=== PATIENT | female | born 1945 | race Caucasian/White ===

== ENCOUNTER → 2023-06-26 16:09 | Outpatient (REF) | payer MEDICARE, SELFPAY | LOC: HWRAD 16:09 | PROVIDERS: ATTENDING PHYSICIAN Internal Medicine | DX: R07.89 Other chest pain (principal) | CPT/HCPCS: 71110 ==

== ENCOUNTER → 2023-07-11 07:53 | Outpatient (REF) | payer MEDICARE, SELFPAY | LOC: HWWDC 07:53 | PROVIDERS: ATTENDING PHYSICIAN Internal Medicine | DX: Z12.31 Encounter for screening mammogram for malignant neoplasm of breast (principal) | CPT/HCPCS: 77063; 77067 ==

== ENCOUNTER → 2023-08-05 12:38 | Outpatient (REF) | payer MEDICARE, SELFPAY | LOC: HWRAD 12:38 | PROVIDERS: ATTENDING PHYSICIAN Nurse Practitioner | DX: J20.8 Acute bronchitis due to other specified organisms (principal) | CPT/HCPCS: 71046 ==

== ENCOUNTER 2023-08-15 07:47 | Emergency (ER) | payer MEDICARE, SELFPAY ==
[2023-08-15 07:49] VITALS: BP 183/73; BMI 26.6
--- NOTE | 2023-08-15 09:03 | ED.GENMED ---
History of Present Illness
<Sheri Castaneda PA-C - Last Filed: 08/15/23 19:17>
General
Chief Complaint: Musculo-Skeletal Complaint
Source: patient and records
Exam Limitations: none
Time Seen by Provider: 08/15/23 09:03
Nursing documentation reviewed up to this point in time: agreed with
Travel History
Have you had any contact with someone who has COVID-19?: No
Do you have any symptoms of coronavirus? Fever > 100 degrees, chills, cough, shortness of breath, sore throat, loss of taste or smell, muscle aches, or headache?: No
History of Present Illness
History of Present Illness:
78-year-old female with past medical history of hypertension, hyperlipidemia, hypothyroidism, urosepsis presenting emergency department today with low back pain for the past few days. Patient states that this first started when she was lifting
boxes. Patient states that she is currently moving out of her house and has been doing a lot of lifting to pack away boxes. Patient states that the pain will subside when lying still for period of time but any movement exacerbates the pain,
especially bending over or twisting/sitting from standing. Patient denies any fevers or chills, any dysuria, hematuria. Patient denies any abdominal pain. Patient denies any nausea or vomiting.
Past History
<Sheri Castaneda PA-C - Last Filed: 08/15/23 19:17>
Past History
ED Past Medical History: HTN
ED Past Surgical History: Gynecological
Social History
Tobacco: Former smoker
Alcohol: None
Drug: None
Personal:
Living: with family
Employment: Retired
Review of Systems
<Sheri Castaneda PA-C - Last Filed: 08/15/23 19:17>
Review of Systems
All Other Systems: ROS reviewed and negative except as documented in HPI and ROS
Phy Exam
<Sheri Castaneda PA-C - Last Filed: 08/15/23 19:17>
Physical Exam
Physical Exam:
Vitals: Patients vital signs are stable
General: Patient is well appearing and in no acute distress; non-toxic
Skin: Warm and dry, no rashes or lesions
Head: Normocephalic, atraumatic
Eyes: Sclera non-icteric. EOMs intact.
Cardiac: Regular rate
Peripheral Vascular: No lower extremity swelling
Pulm: Normal respiratory effort
Abdomen: No abdominal tenderness. No CVA tenderness.
Musculoskeletal: No midline spinal tenderness. No palpable deformities. Mild paralumbar tenderness palpation. Negative straight leg raise. Full range of motion of bilateral hip joints.
Neuro: CN II-XII intact, no focal neurologic deficits.
Psychiatric: Appropriate mood and affect.
Course
<BA Glez Last Filed: 08/15/23 19:17>
Orders/Labs/Results
Orders:
Orders
08/15/23 09:27
Lumbar Spine, 2 or 3 View [CR Lumbar Spine 2 Or 3 Views] Urgent
Comment:
Reason For Exam: low back pain
08/15/23 09:48
Acetaminophen [Tylenol] 650 mg PO NOW STA
Vital Signs
Initial and Last Documented VS:
Initial Vital Signs
Temp Pulse Resp BP Pulse Ox
98.1 F 60 16 183/73 98
08/15/23 07:49 08/15/23 07:49 08/15/23 07:49 08/15/23 07:49 08/15/23 07:49
Last Documented Vital Signs
Temp Pulse Resp BP Pulse Ox
98.1 F 60 16 160/50 93
08/15/23 07:49 08/15/23 07:49 08/15/23 07:49 08/15/23 11:00 08/15/23 11:15
<Yang Duncan DO - Last Filed: 08/15/23 09:53>
Orders/Labs/Results
Orders:
Orders
08/15/23 09:27
Lumbar Spine, 2 or 3 View [CR Lumbar Spine 2 Or 3 Views] Urgent
Comment:
Reason For Exam: low back pain
08/15/23 09:48
Acetaminophen [Tylenol] 650 mg PO NOW STA
Vital Signs
Initial and Last Documented VS:
Initial Vital Signs
Temp Pulse Resp BP Pulse Ox
98.1 F 60 16 183/73 98
08/15/23 07:49 08/15/23 07:49 08/15/23 07:49 08/15/23 07:49 08/15/23 07:49
Last Documented Vital Signs
Temp Pulse Resp BP Pulse Ox
98.1 F 60 16 160/50 93
08/15/23 07:49 08/15/23 07:49 08/15/23 07:49 08/15/23 11:00 08/15/23 11:15
<Sheri Castaneda PA-C - Last Filed: 08/15/23 19:17>
MDM/Problems Addressed
Differential Diagnosis Includes:
ddx include lumbar muscle sprain, sacroiliac sprain/strain, osteoarthritis, compression fracture
MDM/Problems Addressed:
lower back pain
Chronic conditions affecting care: HTN and Other (hyperlipidemia, osteoarthritis, hypothyroidism)
Acute Exacerbation and/or Progression of Chronic Illness:
osteoarthritis
<Sheri Castaneda PA-C - Last Filed: 08/15/23 19:17>
*Radiology
Radiology exam reviewed: preliminary read by ED provider (no acute fracture or dislocation)
*Pulse Oximetry
Patient hypoxic: no
*Critical Care Note
Total Time (30-74mins, 75-104mins- exclusive of procedures): Not Applicable
Data Reviewed
Review of Other/Old Records Reveals: Records
<Sheri Castaneda PA-C - Last Filed: 08/15/23 19:17>
Patient Management
Escalation/DeEscalation of care consider admission/obs:
78-year-old female with past medical history of hypertension, hyperlipidemia, hypothyroidism, urosepsis presenting emergency department today with low back pain for the past few days. This pain started after moving heavy boxes. On exam, patient
does have paraspinal tenderness palpation, but no bony deformities, no pain with range of motion of the hip. No urinary incontinence, fecal incontinence, paresthesias. Her x-ray demonstrates a mild anterior compression deformity of the T12
vertebrae. We did advise patient to follow-up with orthopedist or spinal pain specialist to help manage this. Patient agreement with plan. Return precautions given.
ED Attending Note
<Sheri Castaneda PA-C - Last Filed: 08/15/23 19:17>
-
Portions of this chart may have been created with voice recognition software.� Occasional wrong word or��sound alike� substitutions may have occurred due to the inherent limitations of voice recognition software.
<Yang Duncan DO - Last Filed: 08/15/23 09:53>
ED Attending Note
Patient seen and examined by attending physician: Yes
I performed the substantive portion of visit, reviewed & personally made and approve the management plan that is documented in note by myself or THAI.: Yes
ED Attending Note:
Seen with PA agree with assessment and plan
Discharge Plan
Departure
Patient Disposition: Home (Routine Discharge)
Date of Disposition: 08/15/23
Time of Disposition: 11:11
Patient with high blood pressure during this ER visit?: Yes
Condition: Good
Discharge Problem:
Back pain
Instructions: Active Range of Motion Exercises, Back and Hips, Ibuprofen, Back Pain, BLOOD PRESSURE
Prescriptions:
No Action
Simvastatin
40 mg PO DAILY
Fluticasone Propionate
2 sprays DAILY PRN (Reason: ALLERGIES)
Centrum Silver Tablet
1 PO DAILY
levothyroxine 50 MCG tablet
50 mcg PO DAILY
nebivolol [Bystolic] 10 MG tablet
10 mg PO HS
CALCIUM 500 + VIT D 400 TABLET
PO
DIOVAN
80 mg PO DAILY
Patient Comments:
160mg/25mg
oxycodone 5 MG tablet
5 mg PO Q4HPRN PRN (Reason: pain) Qty: 20 0RF
polyethylene glycol 3350 17 GRAMS powder in packet
17 grams PO DAILY Qty: 10 0RF
Rx Instructions:
use if no BM >24h, OTC, no Rx given/needed
tramadol [Ultram] 50 MG tablet
50 mg PO Q6HPRN PRN (Reason: moderate pain) Qty: 10 0RF
Rx Instructions:
can increase to 2 tabs for severe pain
acetaminophen [Tylenol Extra Strength] 500 MG tablet
1,000 mg PO Q6HPRN PRN (Reason: mild pain) Qty: 1 0RF
Rx Instructions:
take around the clock for 2 days aftrer surgery, then use as needed
OTC, no prescription given
Referrals:
Teodoro Fuentes MD [Active] - Call in 1-3 days for appt
Juliana Meneses MD [Family Provider] -
Activity Restrictions/Additional Instructions:
Please return to the emergency department should you experience any fevers or chills, and acute worsening of your pain, pain with urination, blood in your urine, nausea or vomiting, abdominal pain, chest pain, shortness of breath, or other
concerning signs or symptoms.
As discussed, please continue conservative measures for pain. I recommend using Tylenol as you have been with addition of ice and heat alternating, with lidocaine patches as needed. If your pain does not improve with these measures, I recommend
Motrin.
I have attached the number to use the Dr. Fuentes, spinal pain specialist. Please call for a follow-up appointment.
Please follow up with your PCP.
Interventions
Interventions:
*Risk Screen - Suicide Last Done: 08/15/23 07:49
*General Assessment Last Done: 08/15/23 09:46
*Neglect/Abuse Screening Last Done: 08/15/23 07:49
ED- Fall Risk Assessment Last Done: 08/15/23 11:34
*ED COVID-19 Vaccine History Last Done: 08/15/23 07:49
*Nursing Disposition Last Done: 08/15/23 11:34
ED-Musculoskeletal Assessment Last Done: 08/15/23 09:46
Discharge Date and Time
Discharge Date/Time: 08/15/23 11:34
Print Language: AMHARIC
[2023-08-15 09:54] VITALS: BP 169/44
[2023-08-15] MEDS: TYLENOL 650 MG PO (09:57)
[2023-08-15 10:00] VITALS: BP 178/49
[2023-08-15 11:00] VITALS: BP 160/50
== END 2023-08-15 11:34 | disposition home or self-care (01) ==
LOC: EMR 07:47
PROVIDERS: EMERGENCY PHYSICIAN Emergency Medicine; FAMILY PHYSICIAN Internal Medicine
DX: M54.50 Low back pain, unspecified (principal); I10 Essential (primary) hypertension; E78.5 Hyperlipidemia, unspecified; E03.9 Hypothyroidism, unspecified; Z87.891 Personal history of nicotine dependence
CPT/HCPCS: 99283; 72100

== ENCOUNTER → 2024-01-27 09:03 | Outpatient (REF) | payer MEDICARE, SELFPAY | LOC: RAD 09:03 | PROVIDERS: ATTENDING PHYSICIAN Surgery Vascular Surgery; FAMILY PHYSICIAN Internal Medicine | DX: I71.40 Abdominal aortic aneurysm, without rupture, unspecified (principal) | CPT/HCPCS: 76770 ==

== ENCOUNTER → 2024-05-11 11:48 | Outpatient (REF) | payer MEDICARE, SELFPAY | LOC: HWRAD 11:48 | PROVIDERS: ATTENDING PHYSICIAN Hospitalist | DX: J06.9 Acute upper respiratory infection, unspecified (principal) | CPT/HCPCS: 71046 ==

== ENCOUNTER 2024-05-30 23:50 | Inpatient (IN) | payer MEDICARE, SELFPAY ==
[2024-05-30 21:27] VITALS: BMI 24.1
[2024-05-30 21:33] VITALS: BP 119/72
--- NOTE | 2024-05-30 22:08 | ED.GENMED ---
History of Present Illness
General
Chief Complaint: Abnormal Lab Value
Source: patient and physician
Exam Limitations: none
Time Seen by Provider: 05/30/24 21:54
History of Present Illness
History of Present Illness:
79-year-old female sent in for abnormal labs. Recently discharged with pneumonia discharged on Lasix felt like she was off a little bit. BMP today showed a sodium of 129 and potassium 5.9. No chest pain shortness of breath or other complaints
Past History
Past History
ED Past Medical History: HTN and Hypercholesterolemia
ED Past Surgical History: , Gynecological, Orthopedic and Other (Thoracotomy)
Social History
Tobacco: Former smoker
Alcohol: None
Drug: None
Personal:
Living: with family
Employment: Retired
Phy Exam
Physical Exam
Physical Exam:
GENERAL: Alert and oriented in no apparent distress
EYE: Orbits normal.
NECK: Supple, no thyroid palpable.
ENT: Pharynx without erythema
CARDIAC: Regular rate and rhythm without any obvious murmurs.
LUNGS: Clear breath sounds,normal
ABDOMEN: Soft, without focal tenderness or distention
NEUROLOGICAL: Alert and oriented , grossly non-focal
SKIN: Warm and dry, no rash or lesion, no discoloration, skin intact.
MUSCULOSKELETAL: No edema,no deformity.Good color
PSYCH: Normal and appropriate interaction.
Course
Orders/Labs/Results
Orders:
Orders
05/30/24 21:54
Electrocardiogram (*1) Stat
Reason for Study: Other
Other Reason for Exam: chest pain
Cardiac Monitoring- Treatment ONCE
EKG- Treatment ONCE
IV Insert/Care/Rem.- Treatment PRN
05/30/24 22:05
Basic Metabolic Panel Urgent
Complete Blood Count/With Diff Urgent
05/30/24 23:19
CT Head W/o Iv Contrast Urgent
Comment:
Reason For Exam: Hyponatremia, Change in Mental Status
Urine Osmolality Random [Osmolality, Random Urine] Urgent
Date Specimen was Collected: 05/30/24
Time Specimen was Collected: 23:23
Urine Sodium Urgent
Date Specimen was Collected: 05/30/24
Time Specimen was Collected: 23:23
CXR2 [CR Chest - 2 Views ] Urgent
Comment:
Reason For Exam: Hyponatremia, Recent pneumonia
Abnormal Lab Results
05/30/24
22:05
RBC 3.20 L 10^6/uL
(4.20-5.40)
Hgb 9.8 L g/dL
(12.0-16.0)
Hct 28.8 L %
(37.0-47.0)
Absolute Neuts (auto) 6.6 H 10^3/uL
(1.4-6.5)
Absolute Lymphs (auto) 1.1 L 10^3/uL
(1.2-3.4)
Absolute Monos (auto) 0.9 H 10^3/uL
(0.1-0.6)
Lymphocytes % 12.7 L %
(20.5-51.1)
Monocytes % 9.7 H %
(1.7-9.3)
Sodium 126 L mmol/L
(135-145)
Chloride 93 L mmol/L
(98-107)
BUN 27 H mg/dl
(7-17)
05/30/24 22:05
05/30/24 22:05
Vital Signs
Initial and Last Documented VS:
Initial Vital Signs
Temp Pulse Resp BP Pulse Ox
98.7 F 67 20 119/72 94
05/30/24 21:33 05/30/24 21:33 05/30/24 21:33 05/30/24 21:33 05/30/24 21:33
Last Documented Vital Signs
Temp Pulse Resp BP Pulse Ox
98.7 F 60 18 119/72 98
05/30/24 21:33 05/30/24 22:45 05/30/24 22:45 05/30/24 21:33 05/30/24 22:45
MDM/Problems Addressed
MDM/Problems Addressed:
Mild hyperkalemia and mild hyponatremia. Clinically stable and nontoxic. Will repeat labs and manage depending on repeat lab results
*Pulse Oximetry
Patient hypoxic: no
*EKG
Interpreted by ED Provider?: Yes
Interpretation: abnormal
Comparison EKG: changes noted
Heart Rate: 57
Rate: bradycardiac
Rhythm: sinus
[place]: normal axis
Interval: normal interval
QRS Pattern: normal QRS
Ischemia: no ischemia
*Critical Care Note
Total Time (30-74mins, 75-104mins- exclusive of procedures): Not Applicable
Data Reviewed
Review of Other/Old Records Reveals: Labs, Records and Testing
Update Note
Update Note:
Patient's potassium is reasonable. Unfortunately her sodium is dropped from 129-126 in a half a day. Given the drop in sodium, with some cognitive issues at home earlier patient warrants admission. Likely secondary to diuretic. She does drink a
fair amount of water.
ED Attending Note
-
Portions of this chart may have been created with voice recognition software.� Occasional wrong word or��sound alike� substitutions may have occurred due to the inherent limitations of voice recognition software.
Discharge Plan
Departure
Patient Disposition: Admit
Date of Disposition: 05/30/24
Time of Disposition: 22:48
Presentation/result/management discussed w/ accepting MD/DO: Hospitalist
Discharge Problem:
Hyponatremia, Hyponatremia transient cognitive issues
Prescriptions:
No Action
levothyroxine 50 MCG tablet
50 mcg PO DAILY
citalopram 10 mg Tablet
10 mg PO Q OTHER DAY
lisinopril 20 mg Tablet
20 mg PO BID
labetalol 100 mg Tablet
100 mg PO BID
Referrals:
Juliana Meneses MD [Family Provider] -
Interventions
Interventions:
*Risk Screen - Suicide Last Done: 05/30/24 21:33
*General Assessment Last Done: 05/30/24 21:33
*Neglect/Abuse Screening Last Done: 05/30/24 21:33
ED- Fall Risk Assessment Last Done: 05/30/24 21:33
*ED COVID-19 Vaccine History Last Done: 05/30/24 21:33
Discharge Date and Time
Print Language: ISRAELI
[2024-05-30 22:14] LABS: % Basophils 0.2 % (0-2); % Eosinophils 2.7 % (0-6); % Immature Granulocytes 0.4 % (0-0.5); % Lymphocytes 12.7 % (20.5-51.1); % Monocytes 9.7 % (1.7-9.3); % Neutrophils 74.3 % (42.2-75.2); Absolute Eosinophils 0.2 10^3/uL (0-0.7); Absolute Lymphocytes 1.1 10^3/uL (1.2-3.4); Absolute Monocytes 0.9 10^3/uL (0.1-0.6); Absolute Neutrophils 6.6 10^3/uL (1.4-6.5); Hematocrit 28.8 % (37.0-47.0); Hemoglobin 9.8 g/dL (12.0-16.0); Mean Corpuscular Hgb 30.6 pg (27.0-31.0); Mean Platelet Volume 9.3 fL (7.4-10.4); Nucleated Red Blood Cells % 0 %; Platelet Count 136 10^3/uL (130-400); Red Cell Dist. Width 13.4 % (11.5-14.5); White Blood Cell Count 8.9 10^3/uL (4.8-10.8)
[2024-05-30 22:27] LABS: Blood Urea Nitrogen 27 mg/dl (7-17); Calcium 8.6 mg/dl (8.4-10.2); Carbon Dioxide 29 mmol/L (22-30); Chloride 93 mmol/L (98-107); Estimated Creatinine Clearance 32 ml/min; Glucose 91 mg/dl (70-99); Potassium 4.8 mmol/L (3.5-5.1); Sodium 126 mmol/L (135-145)
[2024-05-30 22:57] VITALS: BP 115/58
[2024-05-30 23:00] VITALS: BP 116/44
--- NOTE | 2024-05-30 23:53 | HPS.HSE ---
Family Physician
-
Family Physician: Juliana Meneses
Chief Complaint
-
Abnormal Labs
History of Present Illness
Patient is an 79y F with PMH significant for hypertension, hypothyroidism, AAA and recent hospitalization who presents to ED for evaluation of abnormal outpatient labs. History obtained from patient and at the bedside. Patient states
that she developed severe SOB on 05/12/24. She was hospitalized at [facility] at that time - reportedly for 'flu and pneumonia'. Though patient notes that she was treated with IV Lasix during her stay. states that her sodium and potassium were
'off' during that hospitalization. She was discharged to SNF on supplemental oxygen which has since been weaned off. She was discharged to home on Saturday and states that she has been feeling very well since that time. She has no further SOB.
She denies any cough, chest pain, fevers / chills, etc.
Patient has been followed by [facility]N and home PT and states that she is doing well.
She had follow-up labs done as an outpatient this AM (here at ) and these showed Na = 129 and K = 5.9. Patient was called by her PCP and advised to present to the ED.
She is currently resting comfortably and has no complaints whatsoever.
Repeat labs done here show Na = 126 and K = 4.8.
Medical History
Past Medical History
Past Medical History: Reports Other
Additional Past Medical History:
Hypertension
Hypothyroidism
AAA (surveillance)
Spontaneous Pneumothoraces (multiple)
Anxiety / Depression
? CHF
Past Surgical History: Reports Other
Additional Past Surgical History:
x 3
Right Thoracotomy / Pleurodesis
Carpal Tunnel
Hernia Repair x 4
Bilateral Lumpectomy (benign)
Social History
Tobacco: Former Smoker (Quit smoking approx 20 years ago. 30 pack years total use.)
Alcohol: None
Drug: None
Personal:
Living: With Family
Family History
Family History: Not pertinent
Allergies / Home Medications
Allergies reflects when Allergies were last updated in [employer].
Home Medications with original date entered in [employer]
Allergy/Medication List:
Allergies
Allergy/AdvReac Type Severity Reaction Status Date / Time
amoxicillin trihydrate Allergy NAUSEA/VOMITING, Verified 05/30/24 21:32
[From Augmentin] DIARRHEA,
abdominal
cramps
hydrochlorothiazide Allergy rapid Verified 05/30/24 21:32
heart rate
latex [Latex] Allergy reddened,itchy Verified 05/30/24 21:32
skin
potassium clavulanate Allergy NAUSEA/VOMITING Verified 05/30/24 21:32
[From Augmentin] &
DIARRHEA,
abdominal
craping
environmental Allergy runny Uncoded 05/30/24 21:32
nose,
sneezing
Home Medications
levothyroxine 50 mcg tablet 50 mcg PO DAILY 10/20/09
citalopram 10 mg tablet 10 mg PO Q OTHER DAY 05/30/24
labetalol 100 mg tablet 100 mg PO BID 05/30/24
lisinopril 20 mg tablet 20 mg PO BID 05/30/24
Review of Systems
-
History Source: Patient
A 12 point ROS was completed and negative except as noted: Yes
Constitutional: Denies Fever, Fatigue or Chills
Respiratory: Denies Cough or Trouble Breathing
Cardiac: Denies Chest Pain or Palpitations
Abdomen/GI: Denies Abdominal Pain, Nausea, Vomiting or Diarrhea
: Denies Dysuria, Frequency or Flank Pain
Musculoskeletal: Denies Joint Pain or Edema
Neurological: Denies Dizzy or Headache
Psych: Denies Depression or Anxiety
Physical Exam
Vital Signs
Vital Signs
Temp Pulse Resp BP Pulse Ox
98.7 F 61 17 116/44 97
05/30/24 21:33 05/30/24 23:30 05/30/24 23:30 05/30/24 23:00 05/30/24 23:30
Physical Exam
General: Other (79y F in no acute distress.)
HEENT: Moist mucous membranes, PERRLA and Other (No JVD.)
Respiratory: Clear; No Wheezes, Rales or Rhonchi
Cardiac: S1/S2, Regular Rhythm and Murmur (II/ DIANA)
GI: Soft, Non Tender, Non Distended and Normal Bowel Sounds
Musculoskeletal: No Clubbing, No Cyanosis and No Edema
Neuro: AO x 3 and Nonfocal/grossly intact
Laboratory Results
-
05/30/24 22:05
05/30/24 22:05
Impression/Plan
-
A/P: Patient is an 79y F with PMH significant for hypertension and hypothyroidism with recent hospitalization for pneumonia who presents to ED for evaluation of abnormal labs.
Hyponatremia
- Admit for further evaluation and treatment.
- Patient does not appear to have any symptoms at present.
- Acuity / severity is unclear with no recent prior labs (most recent labs 15 years ago).
- Check urine studies. CXR.
- No evidence on exam of volume overload - despite reported recent treatment with IV Lasix.
- Fluid restriction for now and follow for changes in labs / lytes.
- Send for recent records from [facility] to check recent baseline / recent treatments / ? CHF / etc.
- Check TFTs and adjust T4 dosing if needed. Check AM cortisol.
Hyperkalemia
- K = 5.9 on outpatient labs. Repeat this evening is 4.8.
- Decrease lisinopril to once daily for now.
- Follow for any changes.
Recent Pneumonia / Hypoxemic Respiratory Failure
- Need clarification on recent events. Reportedly hospitalized with pneumonia / influenza - but received significant IV diuresis as well during that stay.
- No noted history of CHF, etc in available record.
- Review recent [facility] records. Hold diuretic for now and follow I/Os, daily weights, etc.
- No current hypoxemia, dyspnea, cough, etc.
- Follow for any changes.
Benign Hypertension
- Stable. Continue labetalol with holding parameters.
- Decrease lisinopril to once daily for now and follow potassium.
Hypothyroidism
- Update TFTs as noted above. Adjust T4 supplement if necessary.
Normocytic Anemia
- Unclear acuity - seems similar to labs from 15 years ago.
- No reported blood loss / etc recently.
- Check iron studies, etc.
- Follow for changes.
AAA
- Being followed by Dr. Marcelino with surveillance US annually.
DVT Prophylaxis: SCDs
Code Status: Full
[2024-05-30 23:59] LABS: Osmolality Urine 680 mOsm/kg (300-900)
[2024-05-31] VITALS (12 sets, daily range): BP systolic 88–154; BP diastolic 35–84; PULSE 63–76; O2SAT 95; BMI 23.3
[2024-05-31 00:03] LABS: Urine Sodium 80 mmol/L (30-90)
--- NOTE | 2024-05-31 03:28 | PTCARENOTE ---
Received patient from ED via stretcher, standby assist to the bed. Telemetry order- NSR on the monitor (#13) Afebrile, HR 61, RR 17, BP 151/43,
pox 95% room air. No c/o pain. PMH and medications reviewed by this RN and patient. Plan of care discussed. Patient oriented to room. Call calvin within reach.
[2024-05-31 06:41] LABS: Blood Urea Nitrogen 23 mg/dl (7-17); Carbon Dioxide 28 mmol/L (22-30); Chloride 96 mmol/L (98-107); Estimated Creatinine Clearance 40 ml/min; Glucose 78 mg/dl (70-99); Iron 41 ug/dl (37-170); Magnesium 2.1 mg/dl (1.6-2.3); Sodium 127 mmol/L (135-145); eGFR > 60.00
[2024-05-31 06:48] LABS: Potassium 4.6 mmol/L (3.5-5.1)
[2024-05-31 06:51] LABS: Percent Saturation 16 % (20-50); Total Iron Binding Capacity 256 ug/dl (265-497)
[2024-05-31 07:04] LABS: Hemoglobin 9.4 g/dL (12.0-16.0); Mean Corp Hgb Conc. 34.8 g/dL (33.0-37.0); Mean Corpuscular Hgb 31.1 pg (27.0-31.0); Mean Corpuscular Volume 89.4 fL (81.0-99.0); Mean Platelet Volume 9.4 fL (7.4-10.4); Platelet Count 135 10^3/uL (130-400); Red Blood Cell Count 3.02 10^6/uL (4.20-5.40); Red Cell Dist. Width 13.5 % (11.5-14.5); White Blood Cell Count 6.9 10^3/uL (4.8-10.8)
[2024-05-31 07:10] LABS: Cortisol, Random 17.3 ug/dl; TSH Reflex To Free T4 2.59 uIU/ml (0.47-4.68)
[2024-05-31 07:30] LABS: Vitamin B12 958 pg/ml (239-931)
[2024-05-31] MEDS: TRANDATE 100 MG PO (07:49)
[2024-05-31] MEDS: SYNTHROID 50 MCG PO (07:49)
[2024-05-31] MEDS: ZESTRIL 20 MG PO (08:00)
--- NOTE | 2024-05-31 13:12 | W.PN.HOSP.TC ---
Today's Communication/Plan
-
IV lasix
Renal eval
DC in am if Na improves
Assessment / Plan
Assessment / Plan
A/P: Patient is an 79y F with PMH significant for hypertension and hypothyroidism with recent hospitalization for pneumonia who presents to ED for evaluation of abnormal labs.
Hyponatremia -euvolemic
- Patient does not appear to have any symptoms at present.
- Acuity / severity is unclear with no recent prior labs (most recent labs 15 years ago).
- urine studies suggest excess ADH. CXR no acute cardiopulm abnormality .
- No evidence on exam of volume overload - despite reported recent treatment with IV Lasix.
- CW Fluid restriction for now and add IV lasix
- Send for recent records from [facility] to check recent baseline / recent treatments / ? CHF / etc.
- TSH is ok as well AM cortisol
- Consult Renal due to possible chronic nature of it based on hx
Hyperkalemia
- K = 5.9 on outpatient labs. Repeat this evening is 4.8.
- Decreased lisinopril to once daily for now.
- Follow for changes.
Recent Pneumonia / Hypoxemic Respiratory Failure
- Need clarification on recent events. Reportedly hospitalized with pneumonia / influenza - but received significant IV diuresis as well during that stay.
- No noted history of CHF, etc in available record.
- Review recent [facility] records. Hold diuretic for now and follow I/Os, daily weights, etc.
- No current hypoxemia, dyspnea, cough, etc.
- Follow for any changes.
Benign Hypertension
- Stable. Continue labetalol with holding parameters.
- Decrease lisinopril to once daily for now and follow potassium.
Hypothyroidism
- TSH is ok
Normocytic Anemia
- Unclear acuity - seems similar to labs from 15 years ago.
- No reported blood loss / etc recently.
- Check iron studies, etc.
- Follow for changes.
AAA
- Being followed by Dr. Marcelino with surveillance US annually.
DVT Prophylaxis: SCDs
Code Status: Full
Anticipated Discharge: Within 24 hours
Subjective/Interval History
-
Date of Service: May 31, 2024
Voicing no specific complaints today
No LEIVA or dizziness
Not SOB
Not thirsty
No diarrhea
No LE edema
She recently had flu/pneumonia and was admitted to [facility]
She says her NA and K was all abnormal and she got lasix
She went to rehab after
Now she is not on lasix
Denies excess fluid intake
Objective Data
-
Labs:
Laboratory Results
05/31/24
05:51
WBC 6.9
Hgb 9.4 L
Hct 27.0 L
Plt Count 135
Sodium 127 L
Potassium 4.6
Chloride 96 L
Carbon Dioxide 28
BUN 23 H
Creatinine 0.8
Glucose 78
Calcium 8.0 L
Vital Signs:
Vital Signs
Temp Pulse Resp BP Pulse Ox
98.1 F 63 16 94/37 96
05/31/24 11:00 05/31/24 11:00 05/31/24 11:00 05/31/24 11:00 05/31/24 11:00
I&O
05/30/24 05/31/24 06/01/24
06:59 06:59 06:59
Intake Total 250 / 250
Balance 250 / 250
Review of Systems
-
Constitutional: Denies Fever
Respiratory: Denies Cough or Trouble Breathing
Abdomen/GI: Denies Abdominal Pain, Nausea or Vomiting
Physical Exam
-
General: No Apparent Distress
HEENT: Moist Mucous Membranes
Respiratory: Clear to Auscultation
Cardiac: Regular Rhythm and S1/S2; Negative Tachycardic
GI: Soft, Nontender, Nondistended and Normal Bowel Sounds
Musculoskeletal: No Edema
Neuro: AO x 3
Psych: Calm; Negative Confused
Data Reviewed
-
Labs: Labs Reviewed by me
--- NOTE | 2024-05-31 14:06 | W.CON.NEPH ---
Consultation
-
Date/Time Consultation Requested: , May 31, 2024 2:00 PM
Date/Time Consultation Performed: 2:00 PM
Requesting Provider: . Dr. Bean
Performing Provider: Dr. Shay
Reason for Consultation: Hyponatremia
Medical History
-
Chief Complaint: . Hyponatremia
History of Present Illness:
. The patient is a 79-year-old female with a history of hypertension maintained chronically on , labetalol and amlodipine. She has a history of hypothyroidism maintained on levothyroxine and dyslipidemia maintained on statin therapy. She was
recently hospitalized at [facility] for fluid and pneumonia. Apparently she received IV Lasix during the administration. Apparently at that time there was some hyponatremia. She was initially discharged to SNF and thenwent home. She
re-presented with a serum sodium of 129 and potassium of 5.9 And was instructed by her primary care doctor to come to the emergency room. We were consulted for hyponatremia managed.
Past Medical History
Hypertension
Dyslipidemia
AAA
History of multiple pneumothorax, history of right thoracotomy with pleurodesis
Hypothyroidism
x 3
Right Thoracotomy / Pleurodesis
Carpal Tunnel
Hernia Repair x 4
Bilateral Lumpectomy (benign)
Social History
Tobacco: Former Smoker
Alcohol: None
Drug: None
Personal:
Family History
Family History: Not Pertinent
Allergies / Home Medications
Allergy/AdvReac Type Severity Reaction Status Date / Time
amoxicillin trihydrate Allergy NAUSEA/VOMITING, Verified 05/30/24 21:32
[From Augmentin] DIARRHEA,
abdominal
cramps
hydrochlorothiazide Allergy rapid Verified 05/30/24 21:32
heart rate
latex [Latex] Allergy reddened,itchy Verified 05/30/24 21:32
skin
potassium clavulanate Allergy NAUSEA/VOMITING Verified 05/30/24 21:32
[From Augmentin] &
DIARRHEA,
abdominal
craping
environmental Allergy runny Uncoded 05/30/24 21:32
nose,
sneezing
�Medication �Instructions �Recorded �Confirmed �Type
levothyroxine 50 mcg tablet 50 mcg PO DAILY 10/20/09 05/31/24 History
citalopram 10 mg tablet 10 mg PO Q OTHER DAY 05/30/24 05/31/24 History
labetalol 100 mg tablet 100 mg PO BID 05/30/24 05/31/24 History
lisinopril 20 mg tablet 20 mg PO BID 05/30/24 05/31/24 History
aspirin 81 mg tablet,delayed 81 mg PO DAILY 05/31/24 05/31/24 History
release
simvastatin 20 mg tablet 20 mg PO HS 05/31/24 05/31/24 History
Review of Systems
-
A 12 point ROS was completed and negative except as noted: Yes
Constitutional: Denies Fever, Fatigue or Chills
Respiratory: Denies Cough or Trouble Breathing
Cardiac: Denies Chest Pain or Palpitations
Abdomen/GI: Denies Abdominal Pain, Nausea, Vomiting or Diarrhea
: Denies Dysuria, Frequency or Flank Pain
Musculoskeletal: Denies Joint Pain or Edema
Neurological: Denies Dizzy or Headache
Psych: Denies Depression or Anxiety
History Source: Patient
All other systems: Negative unless noted
Physical Exam
Vital Signs
Vital Signs
Temp Pulse Resp BP Pulse Ox
98.1 F 63 16 94/37 96
05/31/24 11:00 05/31/24 11:00 05/31/24 11:00 05/31/24 11:00 05/31/24 11:00
Lab Results
05/31/24 05:51
05/31/24 05:51
WBC 6.9 10^3/uL (4.8-10.8) 05/31/24 05:51
RBC 3.02 10^6/uL (4.20-5.40) L 05/31/24 05:51
Hgb 9.4 g/dL (12.0-16.0) L 05/31/24 05:51
Hct 27.0 % (37.0-47.0) L 05/31/24 05:51
Plt Count 135 10^3/uL (130-400) 05/31/24 05:51
Sodium 127 mmol/L (135-145) L 05/31/24 05:51
Potassium 4.6 mmol/L (3.5-5.1) 05/31/24 05:51
Chloride 96 mmol/L (98-107) L 05/31/24 05:51
Carbon Dioxide 28 mmol/L (22-30) 05/31/24 05:51
BUN 23 mg/dl (7-17) H 05/31/24 05:51
Creatinine 0.8 mg/dL (0.6-1.0) 05/31/24 05:51
eGFR > 60.00 05/31/24 05:51
Glucose 78 mg/dl (70-99) 05/31/24 05:51
Calcium 8.0 mg/dl (8.4-10.2) L 05/31/24 05:51
Physical Exam
General: AOx3, No Distress and Nontoxic
HEENT: PERRL, EOMI, Anicteric, Conjunctivae Clear, Ear/Nose Intact, Hearing Normal, Oropharynx Clear/Moist, Neck Supple, Trachea Midline and No JVD
Respiratory: Clear
Cardiac: S1/S2 and Regular Rate/Rhythm
Breast: Deferred by me
Abdomen: Soft, Nontender, Nondistended, Normal Bowel Sounds and No Hepatosplenomegaly
Rectal: Deferred by Provider
Genito-urinary: No Costovertebral Tender
Musculoskeletal: No Clubbing, No Cyanosis and No Edema
Skin: No Rash, Warm, Dry, No Clubbing, No Cyanosis, Normal Turgor and No Bruising
Neuro: Nonfocal/Grossly Intact and Strength (, 5 out of 5. Extremities normal)
Hematologic/Lymphatic: No Cervical Lymphadenopathy
Psych: Mood/afflect pleasant
Data Reviewed
-
Radiology: Image Personally Visualized and interpreted (Chest x-ray personally reviewed, no distinct infiltrate or congestive heart failure)
Labs: Labs Reviewed by me ( BMP, CBC)
Old Records: Reviewed ( reviewed old records from 10/26/09. Sodium 140)
Assessment/Plan
-
Impression:
Hyponatremia (127)
Hyperkalemia
Hypertension
Recent hospitalization at [facility] for pneumonia
Anemia
Hypothyroidism
Plan:
Hyponatremia:
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
-Urine sodium of 80 not consistent with hypovolemia (But may have been taken after Lasix administered)
-Maintain fluid restriction
-Can continue IV Lasix one more day
-Can provide Samsca tomorrow if hyponatremia, not improving
-Cortisol and thyroid function tests reviewed stable
Hyperkalemia:
-KEVIN inhibitor reduced to half dosage
-Potassium currently stable
[2024-05-31] MEDS: LASIX 20 MG IV (15:04)
[2024-05-31] MEDS: TRANDATE PO (19:00)
[2024-06-01 03:12] VITALS: BP 152/50
[2024-06-01] MEDS: TYLENOL 650 MG PO (05:20)
[2024-06-01] MEDS: SYNTHROID 50 MCG PO (05:20)
[2024-06-01 05:55] VITALS: BMI 22.9
[2024-06-01 06:07] LABS: Blood Urea Nitrogen 19 mg/dl (7-17); Calcium 8.3 mg/dl (8.4-10.2); Carbon Dioxide 29 mmol/L (22-30); Chloride 93 mmol/L (98-107); Estimated Creatinine Clearance 40 ml/min; Glucose 101 mg/dl (70-99); Potassium 4.3 mmol/L (3.5-5.1); Sodium 128 mmol/L (135-145); eGFR > 60.00
[2024-06-01 07:55] VITALS: BP 158/59
--- NOTE | 2024-06-01 08:12 | W.PN.HOSP.TC ---
Addendum entered and electronically signed by Shayla Galvin MD 06/01/24 19:22:
I saw and evaluated the patient independently. I reviewed the resident�s note and agree with findings and plan as documented by Dr. Smith.
GENERAL: well developed, well nourished, female in no apparent distress
HEENT: NC/AT--no O2 requirements
HEART: regular rate and rhythm, +S1, +S2
LUNGS : clear to auscultation bilaterally
ABDOM: soft, nontender, nondistended, + bowel sounds
EXT: no cyanosis, clubbing, or edema
NEUROLOGIC: grossly intact
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
Hyperkalemia--since cortisol WNL, not likely AI--agree with halving the kevin dose
Essential Hypertension-- cont labetalol--have kevin
Hypothyroidism--TSH is within normal limit
Normocytic Anemia--Iron studies showed iron at 41, total iron binding capacity low at 256, percent saturation low at 16--all likely due to chronic disease
AAA--followed by Dr. Marcelino with surveillance US annually.
DVT Proph SCDs
Code Status-- Full code
anticipate d/c tomorrow if sodium stable
Original Note:
Today's Communication/Plan
-
Patient has been cleared by nephrology for discharge after receiving Samsca. PT OT recommends that the patient be sent with home health services. We will move forward with discharge planning if lab values remain within normal limits and stable.
Assessment / Plan
Assessment / Plan
HPI: The patient is an 79-year-old woman with a past medical history of hypertension, hypothyroidism, abdominal aortic aneurysm, and recent hospitalization who presented to the [facility] emergency department for evaluation of abnormal
outpatient lab values. In the emergency department the patient stated that she developed severe shortness of breath on 05/12/2024. At that time she was hospitalized at [facility] for flu and pneumonia. The patient noted that she
was treated with IV Lasix during her stay. The stated that he believed that her sodium and potassium were off during that hospitalization. Once the patient was back at baseline she was discharged to a SNF on supplemental oxygen which was
slowly weaned off. The patient has continued to be followed by visiting nurses and home PT and stated that she is doing well. She came to [facility] to have outpatient labs done and her sodium level was at 129 and potassium was at 5.9. The
patient was subsequently called by her primary care provider who advised that she present to the emergency department. Labs in the emergency department showed a sodium of 126 with a potassium of 4.8. The patient was subsequently admitted to
[facility] for hyponatremia with hyperkalemia.
Assessment/plan:
- Hyponatremia: Stable
Patient is currently euvolemic and there is no evidence for volume overload
Continuing with fluid restriction and IV Lasix
TSH within normal limits as well as morning cortisol
Appreciate nephrology consult. Nephrology noted that the urine osmolality of 680 is consistent with SIADH (Possibly due to a recent pneumonia on admission- Currently no evidence of pneumonia on chest x-ray and no symptoms at the present time).
They recommended maintaining fluid restriction. Cortisol and thyroid function tests reviewed were stable and they moved forward with ordering Samsca.
- Hyperkalemia: Stable
Potassium was 5.9 on outpatient labs. Repeat potassium on 06/01/2024 was 4.3
Reduced KEVIN inhibitor to half of the dosage
Potassium is currently stable and will continue to monitor
- Benign Hypertension: Stable
Continue labetalol with holding
KEVIN inhibitor dosage halved, will follow to ensure that blood pressure is controlled
- Hypothyroidism: Stable
TSH is within normal limit
- Normocytic Anemia:
Iron studies showed iron at 41, total iron binding capacity low at 256, percent saturation low at 16
No reported blood loss recently
- AAA
Being followed by Dr. Marcelino with surveillance US annually.
DVT Prophylaxis: SCDs
Code Status: Full
Anticipated Discharge: Within 24 hours
Subjective/Interval History
-
Met with patient at the bedside. Overall, she is doing well and offers no complaints at the present time she is excited to go home and anticipates being discharged in the near future. She anticipated meeting with nephrology later on in the day.
Objective Data
-
Labs:
Laboratory Results
06/01/24 06/01/24
05:19 08:07
WBC Pending
Hgb Pending
Hct Pending
Plt Count Pending
Sodium 128 L
Potassium 4.3
Chloride 93 L
Carbon Dioxide 29
BUN 19 H
Creatinine 0.8
Glucose 101 H
Calcium 8.3 L
Vital Signs:
Vital Signs
Temp Pulse Resp BP Pulse Ox
98 F 59 15 158/59 97
06/01/24 07:55 06/01/24 07:55 06/01/24 07:55 06/01/24 07:55 06/01/24 07:55
I&O
05/31/24 06/01/24 06/02/24
06:59 06:59 06:59
Intake Total 250 / 250 1240 / 1240
Balance 250 / 250 1240 / 1240
Review of Systems
-
History Source: Patient
Constitutional: Reports No Symptoms
EENT: Reports No Symptoms Reported
Respiratory: Reports No Symptoms
Cardiac: Reports No Symptoms
Abdomen/GI: Reports No Symptoms
Breast: Reports No Symptoms
Genitourinary: Reports No Symptoms
Musculoskeletal: Reports No Symptoms
Skin: Reports No Symptoms
Neuro: Reports No Symptoms
Endocrine: Reports No Symptoms
Hematologic / Lymphatic: Reports No Symptoms
Allergy / Immunology: Reports No Symptoms
Physical Exam
-
General: Well Developed, Well Nourished, No Apparent Distress and Comfortable
HEENT: Normocephalic, Atraumatic and Moist Mucous Membranes
Respiratory: Clear to Auscultation
Cardiac: Regular Rhythm and S1/S2
Breast: Deferred by me
GI: Soft, Nontender, Nondistended and Normal Bowel Sounds
Rectal: Deferred by Provider
Genito-urinary: Deferred by me
Musculoskeletal: No Clubbing, No Cyanosis and No Edema
Skin: Warm and Dry
Neuro: Awake, Alert, Oriented and AO x 3
Psych: Calm
[2024-06-01] MEDS: ZESTRIL 20 MG PO (08:23)
[2024-06-01] MEDS: LASIX 20 MG IV (08:24)
[2024-06-01] MEDS: TRANDATE PO (08:24)
[2024-06-01 08:38] LABS: Hematocrit 29.3 % (37.0-47.0); Hemoglobin 9.7 g/dL (12.0-16.0); Mean Corp Hgb Conc. 33.1 g/dL (33.0-37.0); Mean Corpuscular Hgb 30.1 pg (27.0-31.0); Platelet Count 115 10^3/uL (130-400); Red Blood Cell Count 3.22 10^6/uL (4.20-5.40); Red Cell Dist. Width 13.7 % (11.5-14.5); White Blood Cell Count 6.7 10^3/uL (4.8-10.8)
[2024-06-01 11:16] VITALS: BP 117/81; BP 93/58; BP 96/45; PULSE 63; PULSE 69; PULSE 77
--- NOTE | 2024-06-01 11:34 | W.PN.NEPH.PH ---
Today's Communication / Plan
-
Samsca x 1 now otherwise should be okay for discharge
Assessment/Plan
-
Impression:
Hyponatremia (127)
Hyperkalemia
Hypertension
Recent hospitalization at [facility] for pneumonia
Anemia
Hypothyroidism
Plan:
Hyponatremia:
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
-Urine sodium of 80 not consistent with hypovolemia (But may have been taken after Lasix administered)
-Maintain fluid restriction
-Cortisol and thyroid function tests reviewed stable
Will order Samsca
Hyperkalemia:
-KEVIN inhibitor reduced to half dosage
-Potassium currently stable
-
-
Date of Service: June 01, 2024
CC / HPI / ROS
-
Chief Complaint:
Hyponatremia
History of Present Illness:
Admitted for hyponatremia and hyperkalemia with normalization of potassium
Review of Systems:.
No chest pain or shortness of breath
Labs
-
Labs:
WBC 6.7 10^3/uL (4.8-10.8) 06/01/24 05:19
RBC 3.22 10^6/uL (4.20-5.40) L 06/01/24 05:19
Hgb 9.7 g/dL (12.0-16.0) L 06/01/24 05:19
Hct 29.3 % (37.0-47.0) L 06/01/24 05:19
Plt Count 115 10^3/uL (130-400) L 06/01/24 05:19
Sodium 128 mmol/L (135-145) L 06/01/24 05:19
Potassium 4.3 mmol/L (3.5-5.1) 06/01/24 05:19
Chloride 93 mmol/L (98-107) L 06/01/24 05:19
Carbon Dioxide 29 mmol/L (22-30) 06/01/24 05:19
BUN 19 mg/dl (7-17) H 06/01/24 05:19
Creatinine 0.8 mg/dL (0.6-1.0) 06/01/24 05:19
eGFR > 60.00 06/01/24 05:19
Glucose 101 mg/dl (70-99) H 06/01/24 05:19
Calcium 8.3 mg/dl (8.4-10.2) L 06/01/24 05:19
Physical Exam
-
Vital Signs:
Vital Signs
Temp Pulse Resp BP Pulse Ox
97.9 F 59 16 158/59 98
06/01/24 11:17 06/01/24 07:55 06/01/24 11:17 06/01/24 07:55 06/01/24 11:17
Respiratory:: Bilateral: CTA
Lung Excursion:: Normal
Abdomen:: Soft
Bowel Sounds:: Normal
Extremity Edema:: None: Bilateral:
Wallace Catheter: No
[2024-06-01] MEDS: SAMSCA 15 MG PO (12:02)
[2024-06-01 15:05] VITALS: BP 128/55
--- NOTE | 2024-06-01 17:12 | CM ---
Patient seen at bedside with at bedside. Patient states that she lives with in a one story home with 2 steps to enter. Patient PCP is Dr. Meneses and she uses the [facility] on . Patient was at [facility] following a stay
at [facility]. Patient would like to go home with [facility] PT/OT to [facility]. CM will continue to follow for discharge planning needs.
Plan; home with [facility]
[2024-06-01] MEDS: TRANDATE 100 MG PO (20:43)
[2024-06-01] MEDS: MELATONIN 5 MG PO (21:32)
[2024-06-01 23:00] VITALS: BP 106/46
[2024-06-02 06:00] VITALS: BMI 22.6
[2024-06-02] MEDS: SYNTHROID 50 MCG PO (06:35)
--- NOTE | 2024-06-02 07:20 | W.PN.HOSP.TC ---
Addendum entered and electronically signed by Shayla Galvin MD 06/02/24 19:53:
I saw and evaluated the patient independently. I reviewed the resident�s note and agree with findings and plan as documented by Dr. Smith.
GENERAL: well developed, well nourished, female in no apparent distress
HEENT: NC/AT--no O2 requirements
HEART: regular rate and rhythm, +S1, +S2
LUNGS : clear to auscultation bilaterally
ABDOM: soft, nontender, nondistended, + bowel sounds
EXT: no cyanosis, clubbing, or edema
NEUROLOGIC: grossly intact
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
Hyperkalemia--since cortisol WNL, not likely AI--agree with halving the kevin dose
Essential Hypertension-- cont labetalol--have kevin
Hypothyroidism--TSH is within normal limit
Normocytic Anemia--Iron studies showed iron at 41, total iron binding capacity low at 256, percent saturation low at 16--all likely due to chronic disease
AAA--followed by Dr. Marcelino with surveillance US annually.
DVT Proph SCDs
Code Status-- Full code
Original Note:
Today's Communication/Plan
-
Patient is medically stable and has reached maximal benefit from this hospital admission. The patient is cleared for discharge from a nephrology perspective. We will move forward with discharge.
Assessment / Plan
Assessment / Plan
Assessment/plan:
- Hyponatremia: Stable
Patient is currently euvolemic and there is no evidence for volume overload
Patient received Samsca 1 time yesterday and her sodium is 130 on 06/02/24
Continuing with fluid restriction and IV Lasix
TSH within normal limits as well as morning cortisol
Appreciate nephrology consult. Nephrology noted that the urine osmolality of 680 is consistent with SIADH (Possibly due to a recent pneumonia on admission- Currently no evidence of pneumonia on chest x-ray and no symptoms at the present time).
They recommended maintaining fluid restriction. Cortisol and thyroid function tests reviewed were stable and they moved forward with ordering Samsca. Patient is okay for discharge from a renal standpoint with continued fluid restriction.
- Hyperkalemia: Stable
Potassium was 5.9 on outpatient labs. Repeat potassium on 06/02/2024 was 4.2
Reduced KEVIN inhibitor to half of the dosage
Potassium is currently stable and will continue to monitor
- Benign Hypertension: Stable
Continue labetalol with holding
KEVIN inhibitor dosage halved, will follow to ensure that blood pressure is controlled
- Hypothyroidism: Stable
TSH is within normal limit
- Normocytic Anemia:
Iron studies showed iron at 41, total iron binding capacity low at 256, percent saturation low at 16
No reported blood loss recently
- AAA
Being followed by Dr. Marcelino with surveillance US annually.
DVT Prophylaxis: SCDs
Code Status: Full
Anticipated Discharge: Today
Subjective/Interval History
-
Met with patient at the bedside. Overall, she is doing well and offers no complaints at the present time. She feels that she is ready for discharge and anticipates going home. Spoke to the patient about a fluid restriction diet and the patient
was understanding and said that she would make lifestyle changes.
Objective Data
-
Labs:
Labs
06/02/24 08:02
06/02/24 08:02
Vital Signs:
Vital Signs
Temp Pulse Resp BP Pulse Ox
98.5 F 66 18 106/46 94
06/01/24 23:00 06/01/24 23:00 06/01/24 23:00 06/01/24 23:00 06/01/24 23:00
I&O
06/01/24 06/02/24 06/03/24
06:59 06:59 06:59
Intake Total 1240 / 1240 1140 / 1140
Balance 1240 / 1240 1140 / 1140
Review of Systems
-
History Source: Patient
Constitutional: Reports No Symptoms
EENT: Reports No Symptoms Reported
Respiratory: Reports No Symptoms
Cardiac: Reports No Symptoms
Abdomen/GI: Reports No Symptoms
Breast: Reports No Symptoms
Genitourinary: Reports No Symptoms
Musculoskeletal: Reports No Symptoms
Skin: Reports No Symptoms
Neuro: Reports No Symptoms
Endocrine: Reports No Symptoms
Hematologic / Lymphatic: Reports No Symptoms
Allergy / Immunology: Reports No Symptoms
Physical Exam
-
General: Well Developed, Well Nourished and No Apparent Distress
HEENT: Normocephalic and Atraumatic
Respiratory: Clear to Auscultation
Cardiac: Regular Rhythm and S1/S2
Breast: Deferred by me
GI: Soft, Nontender, Nondistended and Normal Bowel Sounds
Rectal: Deferred by Provider
Genito-urinary: Deferred by me
Musculoskeletal: No Clubbing, No Cyanosis and No Edema
Skin: Warm and Dry
Neuro: Awake, Alert, Oriented and AO x 3
Psych: Calm
[2024-06-02 07:28] VITALS: BP 136/52
[2024-06-02] MEDS: TRANDATE 100 MG PO (08:05)
[2024-06-02] MEDS: LASIX 20 MG IV (08:06)
[2024-06-02] MEDS: ZESTRIL 20 MG PO (08:06)
[2024-06-02 08:34] LABS: Hematocrit 31.7 % (37.0-47.0); Hemoglobin 10.9 g/dL (12.0-16.0); Mean Corp Hgb Conc. 34.4 g/dL (33.0-37.0); Mean Corpuscular Hgb 31.1 pg (27.0-31.0); Mean Corpuscular Volume 90.3 fL (81.0-99.0); Mean Platelet Volume 9.5 fL (7.4-10.4); Platelet Count 137 10^3/uL (130-400); Red Blood Cell Count 3.51 10^6/uL (4.20-5.40); Red Cell Dist. Width 13.7 % (11.5-14.5); White Blood Cell Count 7.9 10^3/uL (4.8-10.8)
[2024-06-02 08:43] LABS: ALT (SGPT) 28 U/L (0-35); AST (SGOT) 27 U/L (14-36); Albumin 3.9 g/dl (3.5-5.0); Alkaline Phosphatase 60 U/L (38-126); Blood Urea Nitrogen 21 mg/dl (7-17); Calcium 8.5 mg/dl (8.4-10.2); Carbon Dioxide 28 mmol/L (22-30); Chloride 94 mmol/L (98-107); Estimated Creatinine Clearance 35 ml/min; Glucose 114 mg/dl (70-99); Magnesium 2.3 mg/dl (1.6-2.3); Potassium 4.2 mmol/L (3.5-5.1); Sodium 130 mmol/L (135-145); Total Bilirubin 0.9 mg/dl (0.2-1.3); Total Protein 6.3 g/dl (6.3-8.2); eGFR > 60.00
--- NOTE | 2024-06-02 13:39 | W.PN.NEPH.PH ---
Today's Communication / Plan
-
Sodium 130 stable for discharge from renal standpoint maintain fluid restriction and increase protein in diet
Assessment/Plan
-
Impression:
Hyponatremia (127)
Hyperkalemia
Hypertension
Recent hospitalization at [facility] for pneumonia
Anemia
Hypothyroidism
Plan:
Hyponatremia:
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
-Urine sodium of 80 not consistent with hypovolemia (But may have been taken after Lasix administered)
-Maintain fluid restriction
Today sodium 130
-Cortisol and thyroid function tests reviewed stable
Samsca x 1 yesterday 06/01.
Okay for discharge from a renal standpoint with continued fluid restriction= okay with continuing SSRI
Hyperkalemia:
-KEVIN inhibitor reduced to half dosage
-Potassium currently stable
-
-
Date of Service: June 02, 2024
CC / HPI / ROS
-
Chief Complaint:
Hyponatremia
History of Present Illness:
Admitted for hyponatremia and hyperkalemia with normalization of potassium
Review of Systems:.
No chest pain or shortness of breath
Labs
-
Labs:
WBC 7.9 10^3/uL (4.8-10.8) 06/02/24 08:02
RBC 3.51 10^6/uL (4.20-5.40) L 06/02/24 08:02
Hgb 10.9 g/dL (12.0-16.0) L 06/02/24 08:02
Hct 31.7 % (37.0-47.0) L 06/02/24 08:02
Plt Count 137 10^3/uL (130-400) 06/02/24 08:02
Sodium 130 mmol/L (135-145) L 06/02/24 08:02
Potassium 4.2 mmol/L (3.5-5.1) 06/02/24 08:02
Chloride 94 mmol/L (98-107) L 06/02/24 08:02
Carbon Dioxide 28 mmol/L (22-30) 06/02/24 08:02
BUN 21 mg/dl (7-17) H 06/02/24 08:02
Creatinine 0.9 mg/dL (0.6-1.0) 06/02/24 08:02
eGFR > 60.00 06/02/24 08:02
Glucose 114 mg/dl (70-99) H 06/02/24 08:02
Calcium 8.5 mg/dl (8.4-10.2) 06/02/24 08:02
Albumin 3.9 g/dl (3.5-5.0) 06/02/24 08:02
Physical Exam
-
Vital Signs:
Vital Signs
Temp Pulse Resp BP Pulse Ox
98 F 67 16 136/52 96
06/02/24 07:28 06/02/24 08:06 06/02/24 07:28 06/02/24 08:06 06/02/24 12:42
Respiratory:: Bilateral: CTA
Lung Excursion:: Normal
Abdomen:: Soft
Bowel Sounds:: Normal
Extremity Edema:: None: Bilateral:
Wallace Catheter: No
[2024-06-02 15:14] VITALS: BP 85/54
--- NOTE | 2024-06-02 15:21 | CM ---
Patient seen at bedside with and physicians. Patient home with [facility] VN and IMM signed and form placed in chart. CM will continue to follow for discharge planning needs.
Plan; home with family; [facility]
[2024-06-02 15:22] VITALS: BP 103/42
--- NOTE | 2024-06-02 18:34 | W.DS.TRANS ---
DC Summary - Toe Stripper
-
Discharge Instructions:
Discharge Diagnosis/Procedures Hyponatremia
Additional Diets Restrict Fluids to 40 oz daily, increase protein
in diet
Activity As tolerated
Driving Restrictions As prior to admission
Bathing Restrictions None
Other Services VN
Instructions:
Stand-Alone Forms:
Changes to Home Medications: Yes
Discharge Medications:
DC Medications w/original date entered in [employer]
levothyroxine 50 mcg tablet 50 mcg PO DAILY Thyroid 10/20/09
citalopram 10 mg tablet 10 mg PO Q OTHER DAY Depression 05/30/24
labetalol 100 mg tablet 100 mg PO BID Blood Pressure 05/30/24
aspirin 81 mg tablet,delayed release 81 mg PO DAILY Heart Failure 05/31/24
simvastatin 20 mg tablet 20 mg PO HS High Cholesterol 05/31/24
Home Medication Changes
lisinopril 20 mg tablet 20 mg PO ONCE DAILY for Blood Pressure 06/02/24
Pending Results: Yes
Additional Pending Results:
BMP script written and given to patient for outpatient labs to be drawn. Patient should follow-up with Nephrology (Omari Shay [phone]).
--- NOTE | 2024-06-02 18:52 | W.DCSUMMARY ---
Addendum entered and electronically signed by Shayla Galvin MD 06/02/24 19:56:
Read, reviewed, and agree. See same day progress note for additional details. Time spent coordinating care, DC planning, review of DC plan of care with resident, transition of care, review of records in EMR, med rec, consults, notes, d/w
consultants, nursing, family, and CM = 24 minutes
Original Note:
Discharge Summary
Discharge Data
Date of Admission: 05/30/24
Date of Discharge: 06/02/24
-
Pending Results: Yes
Additional Pending Results:
Patient was given a prescription for an outpatient BMP lab draw. The patient should follow-up with outpatient nephrology with this lab draw. Recommend that the patient follow-up with the machine clipper from this admission Omari Shay MD.
Hospital Course
The patient is an 79-year-old woman with a past medical history of hypertension, hypothyroidism, abdominal aortic aneurysm, and recent hospitalization who presented to the [facility] emergency department for evaluation of abnormal outpatient
lab values. In the emergency department the patient stated that she developed severe shortness of breath on 05/12/2024. At that time she was hospitalized at [facility] for flu and pneumonia. The patient noted that she was treated
with IV Lasix during her stay. The stated that he believed that her sodium and potassium were off during that hospitalization. Once the patient was back at baseline she was discharged to a SNF on supplemental oxygen which was slowly weaned
off. The patient has continued to be followed by visiting nurses and home PT and stated that she is doing well. She came to [facility] to have outpatient labs done and her sodium level was at 129 and potassium was at 5.9. The patient was
subsequently called by her primary care provider who advised that she present to the emergency department. Labs in the emergency department showed a sodium of 126 with a potassium of 4.8. The patient was subsequently admitted to [facility]
for hyponatremia with hyperkalemia.
Following the admission the patient was fluid restricted and given IV Lasix. There was no obvious evidence of the fluid overload and there was concern of a chronic renal issue so nephrology was consulted. Chest x-ray was conducted that showed no
evidence of active cardiopulmonary disease. Thyroid function tests were ordered which were within normal limits. Cortisol levels were also within normal limits. Lab work showed that the patient was hyperkalemic with a potassium of 5.9 on
outpatient labs. Repeat labs after admission showed a potassium of 4.8 and it trended downwards. The patient's oxygen saturation remained in the 90s throughout this admission and there were no active signs of pneumonia present. White blood cell
count was within normal limits as well. The patient was given IV Lasix throughout her admission in order to diurese her and she was fluid restricted. The patient was also given Samsca on 06/01. Her KEVIN inhibitor was reduced to half dosage due to
suspicion that it was affecting her potassium excretion. Her sodium is at 130 on 06/02/2024 and is stable for discharge from a renal standpoint. It is recommended that the patient continue to maintain a fluid restriction and increase protein in her
diet. The patient was also given a prescription for outpatient BMP lab draw. She should follow-up with outpatient nephrology in regards to this lab draw and follow their recommendations.
The patient has reached maximal benefit from this hospital admission and is appropriate for discharge at the present time. The patient is medically stable and cleared from a nephrology perspective. The patient should follow-up with her outpatient
primary care provider 1 to 2 weeks following discharge. Also, the patient should follow-up with outpatient nephrology within 2 to 4 weeks following discharge.
Discharge Plan
-
Patient Disposition: Home with Home Care
Discharge Diagnosis/Procedures: Hyponatremia and Hyperkalemia
Condition: Good
Additional Diets: Restrict Fluids to 40 oz daily, increase protein in diet
Activity: As tolerated
Driving Restrictions: As prior to admission
Bathing Restrictions: None
Other Services: VN
Referrals:
Omari Shay DO [Active] - in two to four weeks (Follow-up outpatient BMP)
Juliana Meneses MD [Family Provider] - in one to two weeks
Additional Discharge Medication Instructions: Please follow-up outpatient BMP labwork with Nephrology (Omari Shay)
Prescriptions:
Continued
levothyroxine 50 MCG tablet
50 mcg PO DAILY
citalopram 10 mg Tablet
10 mg PO Q OTHER DAY
labetalol 100 mg Tablet
100 mg PO BID
simvastatin 20 mg Tablet
20 mg PO HS
aspirin 81 mg Tablet,Delayed Release (Dr/Ec)
81 mg PO DAILY
Changed
lisinopril 20 mg Tablet
20 mg PO DAILY Qty: 0 0RF
Discharge Orders:
Discharge Patient (As Directed); Ordered 06/02/24
Ordered By: Nadia Smith
Discharge Date and Time
Discharge Date/Time: 06/02/24 16:53
Print Language: SAMI
== END 2024-06-02 16:53 | disposition home health service (06) | DRG 641 ==
LOC: 3 WEST ACU 23:50
PROVIDERS: Internal Medicine; ADMITTING PHYSICIAN Hospitalist; ATTENDING PHYSICIAN Internal Medicine; CONSULT PHYSICIAN Specialist; EMERGENCY PHYSICIAN Emergency Medicine; FAMILY PHYSICIAN Internal Medicine
DX: E87.5 Hyperkalemia (principal); E22.2 Syndrome of inappropriate secretion of antidiuretic hormone; I10 Essential (primary) hypertension; E78.00 Pure hypercholesterolemia, unspecified; E03.9 Hypothyroidism, unspecified; F32.A Depression, unspecified; F41.9 Anxiety disorder, unspecified; D64.9 Anemia, unspecified; I71.40 Abdominal aortic aneurysm, without rupture, unspecified; Z87.891 Personal history of nicotine dependence; Z88.0 Allergy status to penicillin; Z79.890 Hormone replacement therapy; Z79.899 Other long term (current) drug therapy; Z87.01 Personal history of pneumonia (recurrent); Z91.040 Latex allergy status
CPT/HCPCS: 36415; 71046; 80048; 80053; 82533; 82607; 83540; 83550; 83735; 83935; 84300; 84443; 85025; 85027; 93005; 97116; 97161; 97166; 97530; 99284

== ENCOUNTER → 2024-06-04 10:53 | Outpatient (REF) | payer MEDICARE, SELFPAY ==
[2024-06-04 12:38] LABS: Blood Urea Nitrogen 36 mg/dl (7-17); Calcium 8.8 mg/dl (8.4-10.2); Carbon Dioxide 29 mmol/L (22-30); Chloride 95 mmol/L (98-107); Glucose 108 mg/dl (70-99); Potassium 4.9 mmol/L (3.5-5.1); Sodium 133 mmol/L (135-145); eGFR 41.31
== END ==
LOC: REG 10:53
PROVIDERS: ATTENDING PHYSICIAN Specialist
DX: R41.82 Altered mental status, unspecified (principal)
CPT/HCPCS: 36415; 80048

== ENCOUNTER → 2024-06-17 15:13 | Outpatient (REF) | payer MEDICARE, SELFPAY | LOC: RAD 15:13 | PROVIDERS: ATTENDING PHYSICIAN Hospitalist; FAMILY PHYSICIAN Internal Medicine | DX: R09.02 Hypoxemia (principal); M25.473 Effusion, unspecified ankle | CPT/HCPCS: 71046 ==

== ENCOUNTER → 2024-06-25 08:08 | Outpatient (REF) | payer MEDICARE, SELFPAY | LOC: HWRCS 08:08 | PROVIDERS: ATTENDING PHYSICIAN Hospitalist | DX: M25.473 Effusion, unspecified ankle (principal) | CPT/HCPCS: 93306 ==

== ENCOUNTER → 2024-06-26 11:35 | Outpatient (REF) | payer MEDICARE, SELFPAY | LOC: HWRAD 11:35 | PROVIDERS: ATTENDING PHYSICIAN Internal Medicine; FAMILY PHYSICIAN Internal Medicine | DX: R93.89 Abnormal findings on diagnostic imaging of other specified body structures (principal) | CPT/HCPCS: 71250 ==

== ENCOUNTER → 2024-07-13 10:38 | Outpatient (REF) | payer MEDICARE, SELFPAY | LOC: HWWDC 10:38 | PROVIDERS: ATTENDING PHYSICIAN Internal Medicine | DX: Z12.31 Encounter for screening mammogram for malignant neoplasm of breast (principal) | CPT/HCPCS: 77063; 77067 ==

== ENCOUNTER → 2024-07-22 13:56 | Outpatient (REF) | payer MEDICARE, SELFPAY | LOC: RAD 13:56 | PROVIDERS: ATTENDING PHYSICIAN Nurse Practitioner | DX: M79.675 Pain in left toe(s) (principal) | CPT/HCPCS: 73630 ==

== ENCOUNTER → 2025-02-04 09:04 | Outpatient (REF) | payer MEDICARE, SELFPAY | LOC: DHVS 09:04 | PROVIDERS: ATTENDING PHYSICIAN Surgery Vascular Surgery; FAMILY PHYSICIAN Internal Medicine | DX: I71.40 Abdominal aortic aneurysm, without rupture, unspecified (principal) | CPT/HCPCS: 76770 ==